=== PATIENT | male | born 1960 | race African-American/Black ===

== ENCOUNTER 2017-08-10 19:43 | Emergency (ER) | payer OTHER ==
[2017-08-10 20:58] LABS: BASOPHIL % 0.7 % (0-2); PLATELET COUNT 205 x10^3mcL (130-400)
[2017-08-10 21:01] LABS: RED CELL DISTRIBUTION WIDTH 15.9 % (11.5-14.5)
[2017-08-10 21:05] LABS: CALCIUM 8.9 mg/dL (8.5-10.1); CARBON DIOXIDE 33.5 mmol/L (21-32); CREATININE SERUM 1.5 mg/dL (0.7-1.3); POTASSIUM SERUM 3.8 mmol/L (3.5-5.1)
[2017-08-10 21:10] LABS: ALBUMIN 3.4 g/dL (3.4-5.0); BILIRUBIN TOTAL 0.2 mg/dL (0.20-1.00); MAGNESIUM 2.3 mg/dL (1.8-2.4)
[2017-08-10 21:33] LABS: CK-MB 3.2 ng/mL (0-3.6)
[2017-08-10 22:58] VITALS: BP 164/94
== END 2017-08-10 22:45 | disposition home or self-care (01) ==
LOC: ED 19:43
PROVIDERS: Emergency Medicine
DX: R60.0 Localized edema (principal); I10 Essential (primary) hypertension
CPT/HCPCS: 36415; 83880; Q0092

== ENCOUNTER 2020-05-15 19:46 | Emergency (ER) | payer OTHER ==
[~2020-05-15] VITALS: Ht 167.6 cm; Wt 82.1 kg
[2020-05-15 19:54] VITALS: Ht 167.6 cm; Wt 82.1 kg
[2020-05-15 20:19] LABS: BASOPHIL % 1.5 % (0-2); PLATELET COUNT 212 x10^3mcL (130-400)
[2020-05-15 20:22] LABS: RED CELL DISTRIBUTION WIDTH 15.2 % (11.5-14.5)
[2020-05-15 20:26] LABS: CALCIUM 9.2 mg/dL (8.5-10.1); CARBON DIOXIDE 29.9 mmol/L (21-32); CREATININE SERUM 1.3 mg/dL (0.7-1.3); POTASSIUM SERUM 3.3 mmol/L (3.5-5.1)
[2020-05-15 20:30] LABS: ALBUMIN 3.4 g/dL (3.4-5.0); BILIRUBIN TOTAL 0.26 mg/dL (0.20-1.00); TOTAL PROTEIN, SERUM 6.9 g/dL (6.4-8.2)
[2020-05-15 22:02] VITALS: BP 158/106
== END 2020-05-15 22:02 | disposition home or self-care (01) ==
LOC: ED 19:46
PROVIDERS: Emergency Medicine
DX: K22.2 Esophageal obstruction (principal); R10.13 Epigastric pain; I10 Essential (primary) hypertension
CPT/HCPCS: Q0092